=== PATIENT | male | born 1965 | race Caucasian/White ===

== ENCOUNTER 2020-04-18 22:36 | Emergency (ER) | payer BC ==
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
--- NOTE | 2020-04-19 06:13 | CR ---
Right ankle: 4 views of the right ankle were obtained. Comparison: No prior ankle study. Fracture is noted within the posterior malleolus which appears to be acute. Single orthopedic screw is noted within the medial malleolus. No additional fracture or other bony abnormality is appreciated. Soft tissue swelling is noted. Impression: 1. Small acute fracture within the posterior malleolus. 2. Old orthopedic screw within the medial malleolus. 3. No other acute bony abnormality is seen. Diagnostic code #3 Study was dictated in MDT
--- NOTE | 2020-04-19 06:19 | CR ---
Right tibia and fibula: AP and lateral views of the right tibia and fibula were obtained. Fracture is noted within the proximal shaft of the fibula showing slight displacement on the lateral view. Posterior malleolar fracture is noted. Mild degenerative change is noted within the medial joint compartment of the knee. Single screw again noted within the medial malleolus. Soft tissue swelling is noted. Impression: 1. Minimally displaced proximal fibular diaphyseal fracture and nondisplaced posterior malleolar fracture. 2. Soft tissue swelling. Diagnostic code #3 Study was dictated in MDT
== END 2020-04-19 00:30 | disposition home or self-care (01) ==
LOC: JD.ED 22:36
DX: S82.401A Unspecified fracture of shaft of right fibula, initial encounter for closed fracture (principal); S82.891A Other fracture of right lower leg, initial encounter for closed fracture; S80.211A Abrasion, right knee, initial encounter; E66.9 Obesity, unspecified; Z68.37 Body mass index [BMI] 37.0-37.9, adult; W10.8XXA Fall (on) (from) other stairs and steps, initial encounter
CPT/HCPCS: 29515; 73590-26-RT; 73590-RT; 73610-26-RT; 73610-RT; 99283-25